=== PATIENT | female | born 1970 | race Caucasian/White ===

== ENCOUNTER 2019-01-14 04:57 | Inpatient (IN) ==
[2019-01-07 11:59] LABS: Basophils # (Auto) 0 K/mcL (0.0-0.3); Basophils % (Auto) 0.4 % (0.0-2.0); Eosinophils # (Auto) 0.2 K/mcL (0.0-0.7); Eosinophils % (Auto) 2.8 % (0.0-7.0); Granulocytes % (Auto) 63.1 % (38.0-78.0); Hematocrit 42.2 % (36.0-48.0); Hemoglobin 14.2 g/dL (12.0-15.0); Lymphocytes # (Auto) 1.9 K/mcL (1.5-4.8); Lymphocytes % (Auto) 24.3 % (15.5-49.0); Mean Cell Volume 87.3 fL (80.0-100.0); Mean Corpuscular HGB Conc 33.6 g/dL (31.0-36.0); Monocytes # (Auto) 0.7 K/mcL (0.1-0.9); Monocytes % (Auto) 9.4 % (1.0-12.0); Platelet Count 260 K/mcL (140-440); RBC 4.83 M/mcL (4.00-5.20); Red Cell Distribution Width 12.8 % (11.5-14.5)
[2019-01-07 12:22] LABS: Blood Urea Nitrogen 10 mg/dl (6-20); Calcium 9.4 mg/dl (8.6-10.4); Carbon Dioxide 25 mmol/L (22-30); Chloride 106 mmol/L (96-108); Glomerular Filtration Rate 102; Glucose 94 mg/dL (70-105); Potassium 3.9 mmol/L (3.3-5.1); Sodium 144 mmol/L (133-145)
[2019-01-07 13:33] LABS: Appearance,Urine CLEAR; Bilirubin,Urine NEG (NEG); Color,Urine YELLOW; Culture Indicated,Urine NO; Glucose,Urine (UA) NEGATIVE (NEG); Ketones,Urine NEG (NEG); Leukocyte Esterase,Urine NEG /uL (NEG); Nitrate,Urine NEG (NEG); Protein,Urine NEG (NEG); Specific Gravity,Urine 1.032 (1.000-1.035); Urine Blood NEG mg/dL (<0.03); Urobilinogen,Urine NEG (NEG)
[2019-01-14] MEDS ORDERED: SCOPOLAMINE 1 PATCH PATCH TOPICAL PRN (05:00)
[2019-01-14] MEDS ORDERED: IPRATROPIUM/ALBUTEROL 3 ML AMPUL.NEB NEB PRN ×2 (05:00→08:53)
[2019-01-14] MEDS ORDERED: CELECOXIB 200 MG CAPSULE PO SCH (06:00)
[2019-01-14] MEDS ORDERED: ACETAMINOPHEN 500 MG TABLET PO SCH (06:00)
[2019-01-14] MEDS ORDERED: oxyCODONE 10 MG TAB.ER.12H PO SCH (06:00)
[2019-01-14] MEDS ORDERED: 0.9 % SODIUM CHLORIDE 9 ML, KETOROLAC 30 MG, ROPIVACAINE HCL/PF 49.5 ML, EPINEPHrine 0.... IJ SCH (06:00)
[2019-01-14] MEDS ORDERED: ceFAZolin 2 GM in DEXTROSE 5% IN WATER 50 ML IV SCH (06:00)
[2019-01-14] MEDS ORDERED: GENTAMICIN SULFATE 800 MG/20 ML VIAL IR ONE (07:00)
[2019-01-14] MEDS ORDERED: DEXAMETHASONE 10 MG/ML VIAL IV ONE (07:45)
[2019-01-14] MEDS ORDERED: TRANEXAMIC ACID 1,000 MG/10 ML VIAL IV ONE ×2 (07:45→09:07)
[2019-01-14] MEDS ORDERED: GLYCOPYRROLATE 0.2 MG/ML VIAL IV ONE (07:45)
[2019-01-14] MEDS ORDERED: PROPOFOL 200 MG/20 ML VIAL IV ONE (07:45)
[2019-01-14] MEDS ORDERED: LIDOCAINE HCL/PF 100 MG/5 ML SYRINGE IV ONE (07:45)
[2019-01-14] MEDS ORDERED: ONDANSETRON 4 MG/2 ML VIAL IV ONE (07:45)
[2019-01-14] MEDS ORDERED: PHENYLEPHRINE 10 MG/ML VIAL IV ONE (07:45)
[2019-01-14] MEDS ORDERED: ePHEDrine 50 MG/ML AMPUL IV ONE (07:45)
[2019-01-14] MEDS ORDERED: MIDAZOLAM 2 MG/2 ML VIAL IV ONE (07:45)
[2019-01-14] MEDS ORDERED: ROPIVACAINE HCL/PF 20 ML VIAL IJ ONE (07:45)
[2019-01-14] MEDS ORDERED: KETOROLAC 30 MG/ML VIAL IV PRN (08:53)
[2019-01-14] MEDS ORDERED: ONDANSETRON 4 MG/2 ML VIAL IV PRN ×2 (08:53→09:07)
[2019-01-14] MEDS ORDERED: MEPERIDINE 25 MG/ML SYRINGE IV PRN (08:53)
[2019-01-14] MEDS ORDERED: FLUMAZENIL 0.1 MG/ML ML IV PRN (08:53)
[2019-01-14] MEDS ORDERED: METHOCARBAMOL 1,000 MG/10 ML VIAL IV PRN (08:53)
[2019-01-14] MEDS ORDERED: LACTATED RINGERS 250 ML IV PRN (08:53)
[2019-01-14] MEDS ORDERED: NALOXONE HCL 0.4 MG/ML VIAL IV PRN (08:53)
[2019-01-14] MEDS ORDERED: fentaNYL 100 MCG/2 ML VIAL IV PRN (08:53)
[2019-01-14] MEDS ORDERED: BENZOCAINE/MENTHOL 1 LOZENGE PO PRN ×2 (08:53→09:07)
[2019-01-14] MEDS ORDERED: LACTATED RINGERS 1,000 ML IV SCH (09:00)
[2019-01-14] MEDS ORDERED: POLYETHYLENE GLYCOL 3350 17 GM PACKET PO PRN (09:07)
[2019-01-14] MEDS ORDERED: ACETAMINOPHEN 325 MG TABLET PO PRN (09:07)
[2019-01-14] MEDS ORDERED: MAGNESIUM HYDROXIDE 30 ML ORAL.SUSP PO PRN (09:07)
[2019-01-14] MEDS ORDERED: TEMAZEPAM 15 MG CAPSULE PO PRN (09:07)
[2019-01-14] MEDS ORDERED: BISACODYL 10 MG SUPP.RECT PR PRN (09:07)
[2019-01-14] MEDS ORDERED: FLEETS ADULT ENEMA PR PRN (09:07)
--- NOTE | 2019-01-14 09:07 | Brief Operative Note ---
Date of procedure: 01/14/19 Pre-op diagnosis: Right knee djd severe Post-op diagnosis: same Procedure: right tka with robot Grafts/Implants: Yes Anesthesia: GETA Complications Description: 01/14/19 09:07 none Surgeon: Harshil Garcia Packaging Machine Operator: Roman Escalona Estimated blood loss (cc): 100 Tourniquet Time (Minutes): 40 Specimens Removed/Pathology: none sent Condition: stable Disposition: PACU
[2019-01-14] MEDS ORDERED: BECLOMETHASONE DIPROPIONATE 40MCG INHALER INH PRN (09:10)
[2019-01-14] MEDS ORDERED: ALBUTEROL SULFATE 1 PUFF INHALER INH PRN (09:10)
--- NOTE | 2019-01-14 09:47 | Operative Note ---
DATE OF OPERATION: 01/14/2019 PREOPERATIVE DIAGNOSIS: Right knee degenerative arthritis. POSTOPERATIVE DIAGNOSIS: Right knee severe degenerative arthritis, patellofemoral joint. PROCEDURE: Right total knee arthroplasty using the Nova Ratio robot. SURGEON: Harshil Garcia M.D. MANAGER SECURITY: Roman Escalona PA-C. The PA's assistance was required for the safe and efficient completion of the entire case. This provider's expertise and technical skill were required throughout the case. The PA assisted with preoperative coordination, intraoperative retraction, wound closure, dressing and splint application, as well as postoperative documentation and care coordination. IMPLANTS: Roz size 3 femur, size 3 tibial baseplate, 9 mm poly insert, and a 32 mm patellar button. COMPLICATIONS: None. DESCRIPTION OF PROCEDURE: The patient was brought to the operating room and put to sleep with general LMA anesthesia. Once asleep, the patient had the right leg sterilely prepped and draped in the usual sterile fashion. Tourniquet inflated to 250 pounds of pressure. We confirmed the operative site with a timeout and then made our midline incision. A midvastus approach was performed. We then brought in the robot and placed pins above and below the knee. We registered the center of hip rotation and then made our bony cuts, both on the femur and the tibia. We registered thirty points on the femur and tibia. We registered intraarticular pins. We removed the excess bone, balanced the knee both in flexion and extension, and placed the implant size 3 femur and size 3 tibal baseplate with 9 mm poly insert. She went from a +6 extension to a -2 degrees in flexion. PCL was preserved. We resurfaced the patella. Total thickness was 21 mm. This was cut to 13 mm. We placed a 32 mm oval patellar button. Once done trialing, we cemented into place the above-mentioned sizes. We irrigated thoroughly, removed any excess cement and kept the knee at 45 degrees until cement was completely dry. We reinspected and irrigated the knee once more. We controlled any bleeding. Tourniquet deflated at approximately 40 minutes. We closed the midvastus approach with #1 Stratafix x3. We closed the skin with 2-0 Vicryl and adhesive closure. The other portals were closed with 4-0 nylon. All pins and needles were accounted for. LAYNE:elo Job ID: [id number] Doc ID: [id number] Harshil Garcia MD
[2019-01-14] MEDS ORDERED: GARLIC 400 MG PO SCH (10:00)
[2019-01-14] MEDS: 0.45 % SODIUM CHLORIDE 1,000 ML IV SCH ×2 (10:13→22:26)
[2019-01-14] MEDS: HYDROcodone/APAP 10/325MG TABLET PO PRN ×4 (10:36→23:24)
[2019-01-14] MEDS: TRAMADOL HCL 100 MG PO SCH (10:37)
[2019-01-14] MEDS: MAGNESIUM OXIDE 400 MG TABLET PO SCH (10:39)
[2019-01-14] MEDS: ATORVASTATIN 20 MG TABLET PO SCH (10:39)
[2019-01-14] MEDS: VITAMIN D3 1,000 UNIT TABLET PO SCH (10:40)
[2019-01-14] MEDS: ASCORBIC ACID 500 MG TABLET PO SCH (10:40)
[2019-01-14] MEDS: CRANBERRY 1500 MG PO SCH (10:40)
[2019-01-14] MEDS: VITAMIN E (DL,TOCOPHERYL ACET) 400 UNIT CAPSULE PO SCH (10:40)
[2019-01-14] MEDS: PANTOPRAZOLE 40 MG TABLET PO SCH (10:56)
[2019-01-14] MEDS: KETOROLAC 15 MG/ML VIAL IV SCH ×3 (11:36→23:24)
[2019-01-14] MEDS: HYDROmorphone 2 MG/ML VIAL IV PRN ×3 (11:36→22:31)
--- NOTE | 2019-01-14 11:44 | XRay Report ---
CLINICAL INFORMATION: Post-Op Total Knee COMPARISON: None. FINDINGS: Total knee prostheses is anatomically aligned. No osseous abnormality. Periarticular soft tissue swelling noted. IMPRESSION: Negative Interpreted and Authenticated by: Stalin Guy 01/14/19
[2019-01-14] MEDS: 0.9 % SODIUM CHLORIDE 10 ML SYRINGE IV SCH ×2 (12:55→23:23)
[2019-01-14] MEDS: ceFAZolin 1 GM VIAL IV SCH ×2 (16:13→23:23)
[2019-01-14] MEDS ORDERED: TRAMADOL HCL 100 MG PO SCH (19:00)
[2019-01-14] MEDS ORDERED: DILTIAZEM 240 MG CAP.XL.24H PO SCH (19:00)
[2019-01-14] MEDS: PROPRANOLOL 40 MG TABLET PO SCH (20:48)
[2019-01-14] MEDS: DOCUSATE SODIUM 100 MG CAPSULE PO SCH (20:50)
[2019-01-14] MEDS: ASPIRIN 325 MG ENTERIC COATED TABLET PO SCH (20:51)
[2019-01-14] MEDS ORDERED: SENNOSIDES 1 TABLET PO SCH (21:00)
[2019-01-15] MEDS: HYDROcodone/APAP 10/325MG TABLET PO PRN ×3 (04:26→12:38)
[2019-01-15] MEDS: KETOROLAC 15 MG/ML VIAL IV SCH ×2 (05:55→11:21)
[2019-01-15] MEDS: 0.9 % SODIUM CHLORIDE 10 ML SYRINGE IV SCH (05:56)
[2019-01-15] MEDS ORDERED: LEVOTHYROXINE 125 MCG TABLET PO SCH (07:30)
--- NOTE | 2019-01-15 07:39 | Orthopedic Progress Note ---
Subjective Patient information: Note initiated : 01/15/19 at 7:38 am Service Date, if different from initiated Date: [] Patient: Jermaine Doan 48 y/o F admitted on 01/14/19 for Right Robotic Total Knee Arthroplasty. Chief Complaint: [Pt is stable this morning on post operative day 1 without any significant concerns or complaints. Patients vital signs have remained stable. Patients dressing is dry and is grossly intact from a neurovascular and motor standpoint. Patients 10 point ROS is otherwise negative. ] Objective Vital signs: Vital Signs Temp Pulse Resp BP BP Pulse Ox 01/15/19 04:28 97.3 F 64 14 119/61 97 01/14/19 22:31 98.7 F 69 16 120/64 95 01/14/19 19:09 98.7 F 72 16 114/68 95 01/14/19 18:00 91 01/14/19 16:23 97.6 F 70 18 101/56 91 01/14/19 14:00 91 01/14/19 13:20 97.7 F 66 18 114/59 90 01/14/19 12:20 66 18 119/61 94 01/14/19 11:50 63 18 112/68 98 01/14/19 11:20 64 18 125/66 98 01/14/19 10:50 62 18 124/67 96 01/14/19 10:35 61 16 126/65 97 01/14/19 10:25 61 16 117/55 99 01/14/19 10:21 98 01/14/19 10:10 97.6 F 60 16 121/58 98 01/14/19 09:55 99.3 F H 62 18 137/73 98 01/14/19 09:40 99.7 F H 59 L 11 L 126/93 98 01/14/19 09:35 61 11 L 137/69 100 01/14/19 09:30 59 L 10 L 139/71 100 01/14/19 09:25 65 11 L 139/71 100 01/14/19 09:23 97.4 F 65 13 151/78 100 Intake and Output 01/14/19 01/15/19 01/15/19 21:59 05:59 13:59 Intake Total 1475 800 Output Total 1500 900 Balance -25 -100 Intake: Oral 1475 800 Output: Void Amount 1500 900 Other: Meal Dinner Percent of Meal Consumed 100% Feeding Ability Independent Urine Appearance Clear Urine Color Bright Yellow Urine Odor Normal Weight 231 lb 6.4 oz Intake & Output: Intake & Output 01/14/19 01/15/19 01/15/19 21:59 05:59 13:59 Intake Total 1475 800 Output Total 1500 900 Balance -25 -100 Weight 231 lb 6.4 oz Intake: Oral 1475 800 Output: Void Amount 1500 900 Other: Meal Dinner Percent of Meal Consumed 100% Feeding Ability Independent Urine Appearance Clear Urine Color Bright Yellow Urine Odor Normal Incision: Yes healing Incision clean and dry: Yes Dressing: Yes clean Neurological exam IM: Yes motor sensory intact, Yes neurovascular intact Extremities exam IM: Yes Foot pink and warm, Yes neurovascular intact - Labs CBC & BMP: 01/15/19 04:25 01/07/19 10:00 Labs: 01/15/19 01/07/19 04:25 10:01 Hgb 14.2 Hct 35.9 L 42.2 Assessment and Plan (1) Hx of total knee arthroplasty The patient has been educated regarding dressing care, Physical Therapy recommendations, home exercises, restrictions, and follow up appointments. The patient has had all necessary DME prescribed. The patient has remained relatively stable during their hospital course. Status: Acute
--- NOTE | 2019-01-15 07:42 | Discharge Summary ---
Ortho Discharge - TKA - Patient Instructions Diet: Regular Diet Activity: activity as tolerated, weight bearing as tolerated Total Knee Protocol: For Total Knee: Start ROM UZIEL with stationary bike or rocking chair. Work on gaining full extension of knee. Posterior dislocation precautions provided. Hip abductor strengthening and gait training instructions provided. Apply Cryocuff as instructed. Dressing Care: May shower in 3 days, Aquacel Ag - leave on for 5 days - Problem Maintenance (1) Hx of total knee arthroplasty Status: Acute - Follow Up Plan Follow Up Appointments: Roman Escalona PA-C [Physician [employer] Welding Machine Operator] - 01/29/19 1:10 pm Disposition: Home, Self-Care Prognosis: Good Rehab Potential: Good I certify that the patient requires SNF services: No Overall status at discharge: patient is progressing back to baseline - Orders For Discharge Prescriptions: Aspirin [Ecotrin] 325 mg PO BID #60 tab.ec Docusate Sodium [Colace] 100 mg PO BID #60 cap HYDROcodone/APAP 10/325MG [Dixon 10-325Mg] 1 - 2 tab PO Q4HP PRN #75 tab PRN Reason: Pain Level 3-6
[2019-01-15] MEDS: DOCUSATE SODIUM 100 MG CAPSULE PO SCH (08:08)
[2019-01-15] MEDS: VITAMIN D3 1,000 UNIT TABLET PO SCH (08:08)
[2019-01-15] MEDS: PANTOPRAZOLE 40 MG TABLET PO SCH (08:08)
[2019-01-15] MEDS: ATORVASTATIN 20 MG TABLET PO SCH (08:08)
[2019-01-15] MEDS: ASCORBIC ACID 500 MG TABLET PO SCH (08:09)
[2019-01-15] MEDS: ASPIRIN 325 MG ENTERIC COATED TABLET PO SCH (08:09)
[2019-01-15] MEDS: TRAMADOL HCL 100 MG PO SCH (08:09)
[2019-01-15] MEDS: VITAMIN E (DL,TOCOPHERYL ACET) 400 UNIT CAPSULE PO SCH (08:09)
[2019-01-15] MEDS: PROPRANOLOL 40 MG TABLET PO SCH (08:09)
[2019-01-15] MEDS: CRANBERRY 1500 MG PO SCH (08:09)
[2019-01-15] MEDS: MAGNESIUM OXIDE 400 MG TABLET PO SCH (08:09)
[2019-01-15] MEDS ORDERED: LISINOPRIL 20 MG TABLET PO SCH (09:00)
[2019-01-15] MEDS ORDERED: NON FORMULARY MEDICATION 1 DOSE MISCELL (Potassium 99 MG) PO SCH (09:00)
[2019-01-15] MEDS ORDERED: HYDROCHLOROTHIAZIDE 25 MG TABLET PO SCH (09:00)
== END 2019-01-15 13:05 | disposition home or self-care (01) | DRG 470 ==
LOC: MEDSUR 04:57
PROVIDERS: ADMIT Orthopaedic Surgery; ATTEND Orthopaedic Surgery